=== PATIENT | female | born 1950 | race Caucasian/White ===

== ENCOUNTER 2016-03-13 12:29 | Emergency (ER) | payer MEDICARE, MEDICAID ==
[2016-03-13 12:33] VITALS: TEMP 98
[2016-03-13 12:42] VITALS: BMI 26.5
[2016-03-13 12:49] LABS: AUTOMATED BASOPHIL 0.5 % (0-2); AUTOMATED EOSINOPHIL 1.2 % (0-5); AUTOMATED LYMPH 36.6 % (17-44); AUTOMATED MONOCYTE 5.1 % (3-10); AUTOMATED NEUTROPHIL 56.6 % (45-76); MPV 8.9 fL (7.4-10.4)
[2016-03-13 13:02] LABS: PARTIAL THROMB. TIME 23.8 SEC (22-35)
[2016-03-13 13:05] LABS: BLOOD UREA NITROGEN 17 MG/DL (7-17); CALCIUM 9.7 MG/DL (8.4-10.2); CALCULATED OSMOLALITY 274 MOs/Kg (270-290); CHLORIDE 105 mEq/L (98-107); GLUCOSE 81 mg/dL (70-99); SODIUM LEVEL 142 mEq/L (137-146); TOTAL PROTEIN 7.7 G/DL (6.3-8.2)
--- NOTE | 2016-03-13 13:09 | DIRPT ---
CLINICAL DATA: Chest pain. EXAM: CHEST 2 VIEW COMPARISON: None. FINDINGS: Questionable nodular density projecting over the anterior right first rib and right upper lobe. This could represent bony overgrowth of the anterior right first rib. Lungs otherwise clear. Heart is normal size. No effusions or acute bony abnormality. IMPRESSION: Questionable nodule in the right upper lobe versus bony overgrowth of the first rib. Recommend further evaluation with chest CT. This could be done without contrast. Electronically Signed By: Clint Ridley M.D. On: 03/13/2016 13:06
--- NOTE | 2016-03-13 14:40 | EDPRACDOC ---
- General Information Chief Complaint: Chest Pain Stated Complaint: CP Time Seen by Provider: 03/13/16 14:30 Information Source: Patient Mode of Arrival: Car Home Medications: Home Medications Aspirin (Enteric Coated) [Ecotrin] 81 mg PO DAILY 03/13/16 Allergies/Adverse Reactions: Allergies Allergy/AdvReac Type Severity Reaction Status Date / Time Penicillins Allergy Rash-Genera Verified 03/13/16 12:40 lized - History of Present Illness Onset: 2 weeks HPI: Pt c/o l chest pain intermittent x 2 weeks. Denies fever, cough, congestion, sob , abd pain, n/v, changes in bowel or bladder, leg swelling, rash. Denies stress or cath Chest Pain Location: Reports: Substernal, Left Chest Pain Radiation: Reports: None Symptoms Occur: Reports: Gradually Cardiac Risk Factors: Reports: Smoker, Family History (Mother afib). Denies: None, Hyperlipidemia, Hypertension, Diabetes, Cocaine, Other Cardiac History of: Denies: Cardiac Cath, Stress Test Medications within 24 Hours: Reports: None Prehospital Care: Reports: None Pain Came On: Reports: Gradually Pain Status: Resolved Pain Description: Reports: Pressure, Tightness Pain Severity: Mild Pain Worsens With: Reports: Nothing Pain Improves With: Reports: Nothing Associated Signs and Symptoms: Reports: None ED Past Medical History - History Reviewed Yes Nurses notes reviewed and agree except as marked - Social Medical History Smoking Status: Heavy tobacco smoker (5 or more cigarettes/day or daily pipe/ cigar) ETOH: Social Substance Abuse: None EDM Review of Systems - Review of Systems Constitutional: No Symptoms Reported. negative: Fever, Chills, Weakness, Fatigue, Loss of Appetite Ears: No Symptoms Reported. negative: Pain, Hearing Loss, Drainage, Ear Pulling Throat: No Symptoms Reported. negative: Pain, Swelling Nose: No Symptoms Reported. negative: Congestion, Bleeding, Discharge, Injection, Swelling, Deformity, Ecchymosis, Tender, Abrasion, Laceration Mouth: No Symptoms Reported. negative: Pain, Drooling Respiratory: No Symptoms Reported. negative: Cough, Brassy Cough, Barky Cough, Shortness of Breath, Wheezing, Hemoptysis Cardiovascular: Chest Pain Gastrointestinal: No Symptoms Reported. negative: Pain, Constipation, Nausea, Vomiting, Diarrhea, Melena, Formula Intolerance Genitourinary: No Symptoms Reported. negative: Dysuria, Hematuria, Frequency, Discharge, Bleeding, Testicular Pain, Neurological: No Symptoms Reported. negative: Headache, Dizziness, Seizure, Numbness, Weakness, Speech Difficulty, Gait Difficulty Musculoskeletal: No Symptoms Reported. negative: Neck, Chestwall, Ribs, Back, Shoulder, Arm, Elbow, Forearm, Wrist, Hand, Pelvis, Hip, Femur, Knee, Leg, Ankle , Foot Integumentary: No Symptoms Reported. negative: Itching, Rash, Bruising, Wound Allergic/Immunologic: No Symptoms Reported. negative: Hives, Itching Hematologic: No Symptoms Reported. negative: Lymphadenopathy, Easy Bruising, Easy Bleeding Psychiatric: No Symptoms Reported. negative: Anxiety, Depression, Hallucinations, Insomnia, Suicidal - Physical Exam Constitutional: Alert Oriented to: Time, Person, Place Last recorded Vital Signs: Last Vital Signs Temp 98.0 F 03/13/16 12:29 Pulse 61 03/13/16 12:29 Resp 18 03/13/16 12:29 BP 158/70 03/13/16 12:29 Pulse Ox 96 03/13/16 12:29 Oxygen Pulse Oxygen Saturation 96 O2 Device Room Air Oxygen Flow Rate Fraction of Inspired Oxygen ( FIO2) - HEENT Head: Normal ( normocephalic) Eye Exam: Normal (PERRL, EOMI, Sclera white) Neck: Normal (FROM, trachea at midline) - Respiratory/Cardiovascular Respiratory: Normal - CTA (BBS clear to auscultation without adventitious sounds ) Cardiovascular: Normal (RRR without murmur, gallop or rub) - GI Auscultation: Normal (NABS) Palpation: Normal (Soft,No rebound or guarding, non distended) Tenderness: Non tender - Musculoskeletal Back: Normal (Non-Tender) Extremities: Normal (Normal tone, Pulses 2+ No cyanosis or edema, FROM) - Integumentary Skin: Normal, Warm, Dry Lymphatics: Normal (no adenopathy) - Neurologic Memory Impaired: Normal Motor Function: Normal (Normal tone, Pulses 2+ No cyanosis or edema, FROM) Mood Description: Normal Perception: Normal ED Chest Pain Exam - Respiratory/Cardiovascular Respiratory: Normal - CTA (clear to auscultation without adventitious sounds) Cardiovascular/Chest: Normal Radial Pulse: Normal Edema: negative: 1+, 2+, 3+, 4+, 5, 6 Chest Palpation: Normal (No chest tenderness) - Differential Diagnosis Angina, Chest wall pain, Costochondritis, Esophageal reflux/spasm, Gastritis, Myocardial infarction, Pneumonia - Action ASA given in the ED: Yes - Results 03/13/16 12:38 03/13/16 12:38 WBC 7.9 xk/uL (3.8-10.8) 03/13/16 12:38 RBC 4.80 xM/uL (4.20-5.40) 03/13/16 12:38 Hgb 14.8 g/dL (12.0-16.0) 03/13/16 12:38 Hct 43.3 % (36-47) 03/13/16 12:38 MCV 90 fL (81-99) 03/13/16 12:38 MCH 30.8 pg (27-32) 03/13/16 12:38 MCHC 34.2 g/dl (33-36) 03/13/16 12:38 RDW 12.1 % (11.5-14.5) 03/13/16 12:38 Plt Count 161 xk/uL (130-400) 03/13/16 12:38 MPV 8.9 fL (7.4-10.4) 03/13/16 12:38 Neut % (Auto) 56.6 % (45-76) 03/13/16 12:38 Lymph % (Auto) 36.6 % (17-44) 03/13/16 12:38 [place] % (Auto) 5.1 % (3-10) 03/13/16 12:38 Eos % (Auto) 1.2 % (0-5) 03/13/16 12:38 Baso % (Auto) 0.5 % (0-2) 03/13/16 12:38 Absolute Neuts (auto) 4.42 xk/uL (1.7-8.2) 03/13/16 12:38 Absolute Lymphs (auto) 2.84 xk/uL (0.65-4.75) 03/13/16 12:38 PT 10.7 SEC (9.2-11.2) 03/13/16 12:38 INR 1.0 03/13/16 12:38 APTT 23.8 SEC (22-35) 03/13/16 12:38 Sodium 142 mEq/L (137-146) 03/13/16 12:38 Potassium 4.0 mEq/L (3.5-5.1) 03/13/16 12:38 Chloride 105 mEq/L (98-107) 03/13/16 12:38 Carbon Dioxide 27 mMOL/L (22-33) 03/13/16 12:38 Anion Gap 14 mEq/L (8-16) 03/13/16 12:38 BUN 17 MG/DL (7-17) 03/13/16 12:38 Creatinine 0.60 MG/DL (0.52-1.04) 03/13/16 12:38 Estimated GFR (MDRD) > 60 mL/min (>=60) 03/13/16 12:38 Glucose 81 mg/dL (70-99) 03/13/16 12:38 Calculated Osmolality 274 MOs/Kg (270-290) 03/13/16 12:38 Calcium 9.7 MG/DL (8.4-10.2) 03/13/16 12:38 Total Bilirubin 0.4 MG/DL (0.2-1.3) 03/13/16 12:38 AST 25 IU/L (14-36) 03/13/16 12:38 ALT 27 IU/L (9-52) 03/13/16 12:38 Alkaline Phosphatase 83 IU/L (55-165) 03/13/16 12:38 Troponin I < 0.01 ng/mL (<.04) 03/13/16 12:38 Qjz-H-Vzfghtziipf Pept 75 pg/mL (0-900) 03/13/16 12:38 Total Protein 7.7 G/DL (6.3-8.2) 03/13/16 12:38 Albumin 4.0 G/DL (3.5-5.0) 03/13/16 12:38 Lab Results 03/13/16 03/13/16 03/13/16 12:38 12:38 12:38 WBC 7.9 RBC 4.80 Hgb 14.8 Hct 43.3 MCV 90 MCH 30.8 MCHC 34.2 RDW 12.1 Plt Count 161 MPV 8.9 Neut % (Auto) 56.6 Lymph % (Auto) 36.6 [place] % (Auto) 5.1 Eos % (Auto) 1.2 Baso % (Auto) 0.5 Absolute Neuts (auto) 4.42 Absolute Lymphs (auto) 2.84 PT 10.7 INR 1.0 APTT 23.8 Sodium 142 Potassium 4.0 Chloride 105 Carbon Dioxide 27 Anion Gap 14 BUN 17 Creatinine 0.60 Estimated GFR (MDRD) > 60 Glucose 81 Calculated Osmolality 274 Calcium 9.7 Total Bilirubin 0.4 AST 25 ALT 27 Alkaline Phosphatase 83 Troponin I < 0.01 Qyo-X-Hrkezxnbipd Pept 75 Total Protein 7.7 Albumin 4.0 Laboratory Results - last 24 hr 03/13/16 03/13/16 03/13/16 12:38 12:38 12:38 WBC 7.9 RBC 4.80 Hgb 14.8 Hct 43.3 MCV 90 MCH 30.8 MCHC 34.2 RDW 12.1 Plt Count 161 MPV 8.9 Neut % (Auto) 56.6 Lymph % (Auto) 36.6 [place] % (Auto) 5.1 Eos % (Auto) 1.2 Baso % (Auto) 0.5 Absolute Neuts (auto) 4.42 Absolute Lymphs (auto) 2.84 PT 10.7 INR 1.0 APTT 23.8 Sodium 142 Potassium 4.0 Chloride 105 Carbon Dioxide 27 Anion Gap 14 BUN 17 Creatinine 0.60 Estimated GFR (MDRD) > 60 Glucose 81 Calculated Osmolality 274 Calcium 9.7 Total Bilirubin 0.4 AST 25 ALT 27 Alkaline Phosphatase 83 Troponin I < 0.01 Yhk-P-Fwvaohpjqim Pept 75 Total Protein 7.7 Albumin 4.0 Laboratory Results 03/13/16 12:38 03/13/16 12:38 - EKG EKG #1 EKG Time: 12:32 Rate: bpm: 59 Buhl: Normal Rhythm: SB Block: None ST: Nonsp - Diagnostic Imaging Chest Image interpreted by: Radiologist IMPRESSION: No nodule in the right upper lobe as questioned on prior chest x-ray. If represented area bony overgrowth in the first anterior rib. There are small scattered right upper lobe and right middle lobe nodules, favor benign. If the patient is at high risk for bronchogenic carcinoma, follow-up chest CT at 6-12 months is recommended. If the patient is at low risk for bronchogenic carcinoma, follow-up chest CT at 12 months is recommended. This recommendation follows the consensus statement: Guidelines for Management of Small Pulmonary Nodules Detected on CT Scans: A Statement from the Fleischner Society as published in Radiology 2005;237:395-400. Decision Time to Discharge: 16:39 - Departure Disposition: Home Condition: Good Final Diagnosis: Chest pain Qualifiers: Chest pain type: unspecified Qualified Code(s): R07.9 - Chest pain, unspecified Instructions: Chest Pain (ED), Chest Wall Pain (ED) Education/Counseling Given To: Patient Education/Counseling Given Regarding: Diagnosis, Treatment, Follow Up Referrals: None,No Provider [Primary Care Provider] - One Week Lamonte Kwan MD [Staff Physician] - One Week Prescriptions: No Action Aspirin (Enteric Coated) [Ecotrin] 81 mg PO DAILY Additional Instructions: Return for worse or different symptoms.
[2016-03-13] MEDS: ASPIRIN (CHEWABLE) 81 MG TAB PO ONE (14:48)
--- NOTE | 2016-03-13 15:26 | DIRPT ---
CLINICAL DATA: Abnormal chest x-ray, left chest pain for 2 weeks. EXAM: CT CHEST WITHOUT CONTRAST TECHNIQUE: Multidetector CT imaging of the chest was performed following the standard protocol without IV contrast. COMPARISON: Chest x-ray 03/13/2016 FINDINGS: The density projecting over the right upper lobe represents bony overgrowth at the first costochondral junction. Small scattered tiny right upper lobe nodules, the largest approximately 5 mm on image 25 anteriorly. Platelike density noted in the scrapes that platelike subpleural density noted in the right middle lobe measures 5 mm on image 33, likely area of scarring. No additional pulmonary nodules. No pleural effusions. Heart is normal size. Aorta is normal caliber. No mediastinal, hilar, or axillary adenopathy. Chest wall soft tissues are unremarkable. Imaging into the upper abdomen shows no acute findings. Scattered low-density areas throughout the liver, likely small cysts. IMPRESSION: No nodule in the right upper lobe as questioned on prior chest x-ray. If represented area bony overgrowth in the first anterior rib. There are small scattered right upper lobe and right middle lobe nodules, favor benign. If the patient is at high risk for bronchogenic carcinoma, follow-up chest CT at 6-12 months is recommended. If the patient is at low risk for bronchogenic carcinoma, follow-up chest CT at 12 months is recommended. This recommendation follows the consensus statement: Guidelines for Management of Small Pulmonary Nodules Detected on CT Scans: A Statement from the Fleischner Society as published in Radiology 2005;237:395-400. Electronically Signed By: Clint Ridley M.D. On: 03/13/2016 15:23
[2016-03-13 16:51] VITALS: BP 143/81; PULSE 76
== END 2016-03-13 16:50 | disposition home or self-care (01) ==
LOC: ED 12:29
DX: R07.9 Chest pain, unspecified (principal)
CPT/HCPCS: 36415; 71020; 71250; 80053; 83880; 84484; 85025; 85610; 85730; 93005; 99283; A9270; J3490